=== PATIENT | female | born 1990 | race Caucasian/White ===

== ENCOUNTER 2021-09-06 23:16 | Emergency (ER) | payer OTHER ==
[2021-09-06 23:48] VITALS: BP 100/66; PULSE 56; RESP 20; TEMP 97.5
--- NOTE | 2021-09-07 01:27 | ED ---
General Adult HPI - General Chief complaint: Recheck/Abnormal Lab/Rx Stated complaint: Covid Swab Source: patient, RN notes reviewed Mode of arrival: ambulatory Limitations: no limitations - History of Present Illness Initial comments: 31-year-old female presents to the emergency department requesting Covid test for [place]. Patient denies any symptoms or any medical complaints at this time. - Related Data Allergies Allergy/AdvReac Type Severity Reaction Status Date / Time No Known Allergies Allergy Verified 09/06/21 23:45 Review of Systems ROS Statement: Those systems with pertinent positive or pertinent negative responses have been documented in the HPI. ROS Other: All systems not noted in ROS Statement are negative. Past Medical History Past Medical History: No Reported History History of Any Multi-Drug Resistant Organisms: None Reported Past Surgical History: No Surgical Hx Reported Past Psychological History: No Psychological Hx Reported Smoking Status: Never smoker Past Alcohol Use History: None Reported Past Drug Use History: None Reported General Exam Limitations: no limitations (Well-developed, well-nourished female in no acute distress. Initial temperature 97.5, pulse 56, respirations 20, blood pressure 100/66, pulse ox 99% on room air.) General appearance: alert, in no apparent distress ENT exam: Present: normal oropharynx Respiratory exam: Present: normal lung sounds bilaterally. Absent: respiratory distress, wheezes, rales, rhonchi, stridor Cardiovascular Exam: Present: regular rate, normal rhythm, normal heart sounds. Absent: systolic murmur, diastolic murmur, rubs, gallop, clicks Neurological exam: Present: alert, oriented X3, CN II-XII intact Psychiatric exam: Present: normal affect, normal mood Skin exam: Present: warm, dry, intact, normal color. Absent: rash Course Vital Signs 09/06/21 23:45 Temperature 97.5 F L Pulse Rate 56 L Respiratory 20 Rate Blood Pressure 100/66 O2 Sat by Pulse 99 Oximetry Medical Decision Making - Medical Decision Making 31-year-old female in no significant past medical history presents to the emergency Department for Covid testing in order to cross the border into [place]. Physical exam findings are unremarkable. Patient is well-appearing and nontoxic. Vital signs are stable. Covid test is positive. She does not exhibiting any symptoms. Discussed antigen versus molecular testing and concerns about false positive as patient is convinced this must be the case. Explained that it is possible that her viral load is high enough to be detected but low enough to not cause any symptoms. Patient was provided with copies of test. Briefly reviewed [place] quarantine instructions. Return parameters were discussed in detail. Patient verbalizes understanding. My attending is Dr. Benz. - Lab Data Lab Results 09/06/21 Range/Units 23:50 Coronavirus (PCR) Detected A (Not Detectd) Disposition Clinical Impression: Lab test positive for detection of COVID-19 virus Disposition: HOME SELF-CARE Condition: Stable Instructions (If sedation given, give patient instructions): Normal Exam (ED) Additional Instructions: Follow quarantine guidelines as required. Follow-up with your PCP if you develop any symptoms of Covid. Go to the nearest emergency department with any shortness of breath, chest tightness, or difficulty breathing. Is patient prescribed a controlled substance at d/c from ED?: No Referrals: None,Stated [Primary Care Provider] - 1-2 days Time of Disposition: 01:27
== END 2021-09-07 02:00 | disposition home or self-care (01) ==
LOC: EC 23:16
DX: U07.1 COVID-19 (principal)
CPT/HCPCS: 87635; 99283